=== PATIENT | female | born 1990 | race Caucasian/White ===

== ENCOUNTER 2025-05-10 10:40 | Emergency (ER) | payer OTHER ==
[~2025-05-10] VITALS: Ht 167.6 cm; Wt 56.0 kg
[2025-05-10 10:46] VITALS: BP 124/81; PULSE 87; RESP 18; TEMP 36.9; O2SAT 96
[2025-05-10] MEDS ORDERED: SODIUM CHLORIDE 0.9% 1,000 ML IV ONE (11:30)
== END 2025-05-10 11:28 | disposition left against medical advice (07) ==
LOC: ER 10:51
DX: F10.129 Alcohol abuse with intoxication, unspecified (principal); Y90.9 Presence of alcohol in blood, level not specified
CPT/HCPCS: 99283; J7030